=== PATIENT | male | born 1960 | race Hispanic/Latino ===

== ENCOUNTER 2018-08-16 08:15 | Outpatient (AMBR) | payer MEDICAID, SELFPAY ==
--- NOTE | 2018-08-16 10:18 | PT.ODS1RPT ---
PT OP Progress/Discharge Note Date of Service: August 16, 2018 Progress Note/DC Note Progress Note/Discharge Note: DC Note Patient Information Pediatric or Adult Patient: Adult PT >13 Visit Reasons: shoulder pain Medical Diagnosis: Pain on the R shoulder M25.511 Treatment Dx #1: Muscle weakness Treatment Dx #2: Pain on the R shoulder Service Continue Service or Discharge: Discharge Physical Therapy Outpatient Service Dates: From: / To:: 06/14/2018 to 09/13/2018 Discharge Date: 08/16/18 Status Subjective: 57 y/o male who R shoulder pain. Patient states he is feeling better and that he doesn't feel stiffness in the am when he wakes up. He feels stiffness only when he plays guitar. there is less pain during movement. Objective: ROM ON R shoulder AROM //PROM R shoulder flexion 145 // 150deg R shoulder Abduction 145 // 150 deg MMT R UE 5/5 Pain in the r shoulder at best 0/10 and at worst is 3/10 Assessment: Patient will be dc from PT services secondary to goals achieved. Patient states he feels better only slight stiffness while he is playing guitar other than that he is feeling better. Patient is agreeable to be dc today from Physical therapy. Patient is I with HEP. He is back to work. He was able to carry As per patient he might come back for his other (L) shoulder. Plan: Patient will be dc from PT services secondary to goals achieved. Treatment Provided This POC: Thera ex manual tx modalities HEP Discharge Comment: patient will be dc from PT services secondary to goals achieved. Patient is I with HEP. Occasional pain only during certain activities.
== END 2018-09-15 23:59 | disposition home or self-care (01) ==
PROVIDERS: Referring Provider Registered Nurse; Visit Provider Registered Nurse
DX: M25.511 Pain in right shoulder (principal)
CPT/HCPCS: 97035; 97110